=== PATIENT | female | born 1955 | race Caucasian/White ===

== ENCOUNTER 2022-07-02 10:43 | Emergency (ER) | payer MEDICARE, OTHER ==
[~2022-07-02] VITALS: Ht 157.5 cm; Wt 87.4 kg
[2022-07-02] MEDS ORDERED: ETOMIDATE INJ 20MG/10ML VIAL ONE (10:44)
[2022-07-02] MEDS ORDERED: ROCURONIUM BROMIDE 50MG/5ML VIAL ONE (10:44)
[2022-07-02] MEDS ORDERED: ETOMIDATE INJ 20MG/10ML VIAL IV ONE (11:10)
[2022-07-02] MEDS ORDERED: ROCURONIUM BROMIDE 50MG/5ML VIAL IV ONE (11:10)
[2022-07-02 11:14] LABS: BASO % 0.1 % (0.0-1.0); HEMATOCRIT 50.6 % (36.0-47.0); HEMOGLOBIN 15.8 g/dl (12.0-15.5); LYMPH # 3.1 10^3/uL (1.5-5.0); LYMPH % 14.9 % (24.0-44.0); MEAN CORPUSCULAR HEMOGLOBIN 26.2 pg (27.0-33.0); MEAN CORPUSCULAR HGB CONC 31.2 g/dl (32.0-36.5); MEAN CORPUSCULAR VOLUME 83.9 fl (80.0-96.0); MONO # 1.5 10^3/uL (0.0-0.8); MONO % 7.3 % (2.0-8.0); NEUTROPHILS # 15.6 10^3/uL (1.5-8.5); NEUTROPHILS % 76.2 % (36.0-66.0); PLATELET COUNT, AUTOMATED 424 10^3/uL (150-450); RED BLOOD COUNT 6.03 10^6/uL (4.00-5.40); WHITE BLOOD COUNT 20.5 10^3/uL (4.0-10.0)
[2022-07-02] MEDS ORDERED: MIDAZOLAM INJ 2MG/2ML VIAL IV STA (11:18)
[2022-07-02] MEDS ORDERED: NOREPINEPHRINE 4MG IN D5 250ML 4 MG in IV 1 EA IV SCH ×2 (11:20)
[2022-07-02] MEDS ORDERED: MIDAZOLAM 100MG/100ML-0.9%NACL 100 MG in IV 1 EA IV SCH (11:20)
[2022-07-02] MEDS ORDERED: ROCURONIUM BROMIDE 50MG/5ML VIAL IV PRN (11:20)
[2022-07-02 11:23] LABS: INR 1.1; PROTHROMBIN TIME 14.4 SECONDS (12.5-14.5)
[2022-07-02 11:24] LABS: PARTIAL THROMBOPLASTIN TIME 26.6 SECONDS (24.8-34.2)
[2022-07-02] MEDS ORDERED: NS 1,000 ML IV ONE (11:25)
[2022-07-02 11:38] LABS: ABG BASE EXCESS -4.6 (-2.0-2.0); ABG HCO3 19.7 MEQ/L (22.0-26.0); ABG O2 SATURATION 99.7 % (95.0-99.0); ABG PARTIAL PRESSURE CO2 34.5 mmHg (35.0-45.0); ABG PARTIAL PRESSURE O2 288.5 mmHg (75.0-100.0); ABG STANDARD HCO3 20.8 MEQ/L (22.0-26.0); ABG TOTAL CO2 20.8 MEQ/L (23.0-31.0); ABG pH (ARTERIAL) 7.375 UNITS (7.350-7.450)
[2022-07-02 11:45] LABS: RSV AMPLIFICATION NEGATIVE (NEGATIVE)
[2022-07-02] MEDS ORDERED: MANNITOL 25% 12.5GM 50ML VIAL IV ONE (11:45)
[2022-07-02 12:30] LABS: ALBUMIN 3.5 G/DL (3.2-5.2); BILIRUBIN,DIRECT 0.3 MG/DL (<0.4); CALCIUM LEVEL 9.6 MG/DL (8.3-10.6); CREATININE FOR GFR 4.02 MG/DL (0.55-1.30); GLOMERULAR FILTRATION RATE 11.9 (>45); POTASSIUM SERUM 4.3 MMOL/L (3.5-5.1); TOTAL PROTEIN 7.6 G/DL (5.7-8.2)
[2022-07-02 12:39] VITALS: TEMP 91.2
[2022-07-02] MEDS ORDERED: MANNITOL IV ONE (13:00)
[2022-07-02 13:21] VITALS: BP 127/73; O2SAT 98
== END 2022-07-02 13:30 | disposition short-term general hospital (02) ==
LOC: EDBD 10:43 → M ED 10:43
DX: I61.8 Other nontraumatic intracerebral hemorrhage (principal); M50.222 Other cervical disc displacement at C5-C6 level; M50.223 Other cervical disc displacement at C6-C7 level; E04.2 Nontoxic multinodular goiter; I10 Essential (primary) hypertension; G47.30 Sleep apnea, unspecified; R00.0 Tachycardia, unspecified
CPT/HCPCS: 36600; 51702; 70450; 71045; 72125; 80048; 80076; 82803; 83605; 85025; 85610; 85730; 87040; 87077; 87186; 87631; 92950; 93005; 93041; 94760; 96365; 96366; 96368; 96375; 99285; J2150; J2250